=== PATIENT | female | born 1980 | race Caucasian/White ===

== ENCOUNTER → 2016-09-21 | Outpatient (CLI) | payer MEDICAID ==
--- NOTE | ~2016-09-21 | ECHO ---
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 The estimated left ventricular ejection fraction is 60%. Diastolic assessment reveals normal LV relaxation. The left atrium is mildly dilated by LA volume index measurement. No pericardial effusion. No significant valvular abnormalities. Procedure Type of Study TTE procedure:2D Echocardiogram. Procedure Date Date: 09/21/2016 Start: 10:17 AM Study Location: Echo Lab Indications:Atrial fibrillation. Appropriate Use Criteria: 9 Patient Status: Routine HR: 74 bpm BP: 141/85 mmHg M-Mode/2D Measurements LV Diastolic Dimension: 5.22 cm LV Systolic Dimension: 3.68 cm LV Septum Diastolic: 1.09 cm LV PW Diastolic: 1.01 cm AO Root Dimension: 2.4 cm Cardiac Output: 5.46 l/min AV Cusp Separation: 1.6 cm RV Diastolic Dimension: 3.31 cm LA volume: 54 ml LVOT: 2 cm LVOT VTI: 23.5 cm LV Stroke volume: 73.79 ml Doppler Measurements AV Peak Velocity: 1.57 m/s MV Peak E-Wave: 0.67 m/s AV Peak Gradient: 9.86 mmHg MV Peak A-Wave: 0.46 m/s AV Mean Gradient: 5 mmHg MV E/A Ratio: 1.44 LVOT Peak Velocity: 1.26 m/s MV P1/2t: 44 msec TR Gradient:12.53 mmHg PV Peak Velocity: 1.13 m/s Estimated RAP:10 mmHg PV Peak Gradient: 5.11 mmHg Estimated RVSP: 23 mmHg Estimated PASP: 22.53 mmHg E' Septal Velocity: 0.07 m/s A' Septal Velocity: 0.13 m/s E' Lateral Velocity: 0.13 m/s Findings Left Ventricle Diastolic assessment reveals normal LV relaxation. Right Ventricle Normal right ventricle structure and function. Left Atrium The left atrium is mildly dilated by LA volume index measurement. Right Atrium Normal right atrial size. IVC measures 2.1 cm with inspiratory collapse. Mitral Valve Trivial mitral regurgitation by color Doppler. Aortic Valve Normal aortic valve structure and function. Tricuspid Valve Trivial tricuspid regurgitation by color Doppler. Pulmonic Valve Normal pulmonic valve structure and function. Pericardial Effusion No pericardial effusion. Signature dtt: JODI WELLS dtd: 09/21/16 1017 Physician Self Edit
== END | disposition disaster alternative care site (69) ==
LOC: GCAR 09:51
DX: I48.91 Unspecified atrial fibrillation (principal); I72.9 Aneurysm of unspecified site